=== PATIENT | female | born 1960 | race Caucasian/White ===

== ENCOUNTER → 2019-10-08 | Outpatient (CLI) | payer BC ==
--- NOTE | 2019-10-08 12:10 | XR ---
EXAMINATION TYPE: XR chest 2V DATE OF EXAM: 10/08/2019 COMPARISON: NONE HISTORY: Chest pain TECHNIQUE: Frontal and lateral views of the chest are obtained. FINDINGS: There is no focal air space opacity. No evidence for pneumothorax. No pleural effusion. The cardiac silhouette size is within normal limits. The osseous structures are grossly intact. IMPRESSION: 1. No acute cardiopulmonary process.
== END | disposition home or self-care (01) ==
LOC: RADXRMAIN 10:39
PROVIDERS: ATTEND Family Medicine
DX: R05 Cough (principal)
CPT/HCPCS: 71046

== ENCOUNTER → 2020-12-12 | Outpatient (CLI) | payer BC, OTHER | END | disposition home or self-care (01) | LOC: LABWHC1 10:14 | PROVIDERS: ATTEND Family Medicine | DX: U07.1 COVID-19 (principal) | CPT/HCPCS: U0003; C9803; U0005 ==

== ENCOUNTER 2020-12-19 07:14 | Emergency (ER) | payer OTHER ==
[2020-12-19] MEDS ORDERED: ALBUTEROL HFA INHALER INHALATION STA (07:41)
[2020-12-19] MEDS ORDERED: SODIUM CHLORIDE 0.9% 500 ML 500 ML IV STA (07:41)
[2020-12-19] MEDS ORDERED: ACETAMINOPHEN TAB 500 MG TAB PO STA (07:43)
[2020-12-19] MEDS ORDERED: IBUPROFEN 600 MG TAB PO STA (07:43)
--- NOTE | 2020-12-19 08:01 | ED ---
General Adult HPI - General Chief complaint: Shortness of Breath Stated complaint: SOB, COVID+ Time Seen by Provider: 12/19/20 07:15 Source: patient, RN notes reviewed, old records reviewed Mode of arrival: wheelchair Limitations: no limitations - History of Present Illness Initial comments: This is a 60-year-old female presents emergency Department with a 2 week history of cold. Patient states over the last couple days she all of a sudden started having more shortness of breath and a low-grade fever. Patient states her doctor sent the prescription into the pharmacy but she didn't pick it up. Patient states she believes that his ivermectin. Patient denies any headache patient denies lightheadedness or dizziness. Patient denies any chest pain or palpitations. Patient denies abdominal pain patient denies nausea vomiting diarrhea patient is a swelling to the legs or calf tenderness - Related Data Home Medications Medication Instructions Recorded Confirmed Ivermectin 3 mg PO DAILY 12/19/20 12/19/20 Naproxen Sodium [Aleve] 440 mg PO Q12H PRN 12/19/20 12/19/20 Allergies Allergy/AdvReac Type Severity Reaction Status Date / Time aspirin Allergy Unknown Verified 12/19/20 09:30 Penicillins Allergy Unknown Verified 12/19/20 09:30 Review of Systems ROS Statement: Those systems with pertinent positive or pertinent negative responses have been documented in the HPI. ROS Other: All systems not noted in ROS Statement are negative. Past Medical History Past Medical History: No Reported History History of Any Multi-Drug Resistant Organisms: None Reported Past Surgical History: Hysterectomy Additional Past Surgical History / Comment(s): sinus surgery Past Psychological History: No Psychological Hx Reported Smoking Status: Never smoker, Smoker, current status unknown Past Drug Use History: None Reported General Exam - General Exam Comments Initial Comments: GENERAL: Patient is well-developed and well-nourished. Patient is nontoxic and well- hydrated and is in mild distress. ENT: Neck is soft and supple. No significant lymphadenopathy is noted. Oropharynx is clear. Moist mucous membranes. Neck has full range of motion without eliciting any pain. EYES: The sclera were anicteric and conjunctiva were pink and moist. Extraocular movements were intact and pupils were equal round and reactive to light. Eyelids were unremarkable. PULMONARY: Unlabored respirations. Good breath sounds bilaterally. Patient's crackles in the bilateral bases CARDIOVASCULAR: There is a regular rate and rhythm without any murmurs gallops or rubs. ABDOMEN: Soft and nontender with normal bowel sounds. SKIN: Skin is clear with no lesions or rashes and otherwise unremarkable. NEUROLOGIC: Patient is alert and oriented x3. Cranial nerves II through XII are grossly intact. Motor and sensory are also intact. Normal speech, volume and content. Symmetrical smile. MUSCULOSKELETAL: Normal extremities with adequate strength and full range of motion. LYMPHATICS: No significant lymphadenopathy is noted PSYCHIATRIC: Normal psychiatric evaluation. Limitations: no limitations Course Vital Signs 12/19/20 12/19/20 12/19/20 07:21 07:40 08:07 Temperature 98.4 F 100.6 F H Pulse Rate 101 H 89 Respiratory 20 26 H Rate Blood Pressure 125/88 149/78 O2 Sat by Pulse 97 97 Oximetry 12/19/20 09:00 Temperature Pulse Rate 82 Respiratory 22 Rate Blood Pressure 139/95 O2 Sat by Pulse 98 Oximetry Medical Decision Making - Medical Decision Making EKG shows normal sinus rhythm at 91 bpm CA interval 158 QRS 72 QT interval 320 QTC is 403. Patient's EKG shows no ST segment elevation or depression. Chest x-ray shows bilateral pneumonia consistent COVID Pneumonia. - Lab Data Result diagrams: 12/19/20 07:54 12/19/20 07:54 Lab Results 12/19/20 12/19/20 12/19/20 Range/Units 07:54 07:54 07:54 WBC 12.5 H (3.8-10.6) k/uL RBC 5.60 H (3.80-5.40) m/uL Hgb 15.3 (11.4-16.0) gm/dL Hct 44.4 (34.0-46.0) % MCV 79.4 L (80.0-100.0) fL MCH 27.3 (25.0-35.0) pg MCHC 34.4 (31.0-37.0) g/dL RDW 14.1 (11.5-15.5) % Plt Count 298 (150-450) k/uL MPV 6.9 Neutrophils % 83 % Lymphocytes % 9 % Monocytes % 6 % Eosinophils % 0 % Basophils % 1 % Neutrophils # 10.4 H (1.3-7.7) k/uL Lymphocytes # 1.1 (1.0-4.8) k/uL Monocytes # 0.8 (0-1.0) k/uL Eosinophils # 0.0 (0-0.7) k/uL Basophils # 0.1 (0-0.2) k/uL Sodium 139 (137-145) mmol/L Potassium 4.3 (3.5-5.1) mmol/L Chloride 105 (98-107) mmol/L Carbon Dioxide 26 (22-30) mmol/L Anion Gap 8 mmol/L BUN 19 H (7-17) mg/dL Creatinine 0.64 (0.52-1.04) mg/dL Est GFR (CKD-EPI)AfAm >90 (>60 ml/min/1.73 sqM) Est GFR (CKD-EPI)NonAf >90 (>60 ml/min/1.73 sqM) Glucose 91 (74-99) mg/dL Calcium 9.4 (8.4-10.2) mg/dL Total Bilirubin 0.7 (0.2-1.3) mg/dL AST 37 H (14-36) U/L ALT 21 (4-34) U/L Alkaline Phosphatase 100 (38-126) U/L Troponin I <0.012 (0.000-0.034) ng/mL Total Protein 6.9 (6.3-8.2) g/dL Albumin 3.8 (3.5-5.0) g/dL Disposition Clinical Impression: Pneumonia due to COVID-19 virus Disposition: HOME SELF-CARE Instructions (If sedation given, give patient instructions): Coronavirus Disease 2019 (COVID-19) Is patient prescribed a controlled substance at d/c from ED?: No Referrals: Calos Flores DO [Primary Care Provider] - 1-2 days Time of Disposition: 09:37
--- NOTE | 2020-12-19 08:27 | XR ---
EXAMINATION TYPE: XR chest 1V portable DATE OF EXAM: 12/19/2020 HISTORY: Short of breath, COVID COMPARISON: 10/08/2019 TECHNIQUE: Single view of the chest is submitted. FINDINGS: Patchy basilar infiltrates compatible with Covid 19 pneumonia. The heart is stable. Hilar and mediastinal structures are within normal limits. Degenerative changes are seen of the dorsal spine. IMPRESSION: 1. Patchy basilar infiltrates compatible with Covid 19 pneumonia.
[2020-12-19 08:36] LABS: Basophils # (A) 0.1 k/uL (0-0.2); Basophils % (A) 1 %; Eosinophils % (A) 0 %; HCT 44.4 % (34.0-46.0); HGB 15.3 gm/dL (11.4-16.0); Lymphocytes # (A) 1.1 k/uL (1.0-4.8); Lymphocytes % (A) 9 %; MCH 27.3 pg (25.0-35.0); MCHC 34.4 g/dL (31.0-37.0); MCV 79.4 fL (80.0-100.0); Mean Platelet Volume 6.9; Monocytes # (A) 0.8 k/uL (0-1.0); Monocytes % (A) 6 %; Neutrophils # (A) 10.4 k/uL (1.3-7.7); Neutrophils % (A) 83 %; Platelet Count 298 k/uL (150-450); RDW 14.1 % (11.5-15.5); WBC 12.5 k/uL (3.8-10.6)
[2020-12-19 08:43] LABS: ALT 21 U/L (4-34); AST 37 U/L (14-36); African American GFR (CKD) >90 (>60 ml/min/1.73 sqM); Albumin 3.8 g/dL (3.5-5.0); Alkaline Phosphatase 100 U/L (38-126); Anion Gap 8 mmol/L; Blood Urea Nitrogen 19 mg/dL (7-17); Calcium 9.4 mg/dL (8.4-10.2); Carbon Dioxide 26 mmol/L (22-30); Chloride 105 mmol/L (98-107); Glucose 91 mg/dL (74-99); Non-African American GFR(CKD) >90 (>60 ml/min/1.73 sqM); Potassium 4.3 mmol/L (3.5-5.1); Sodium 139 mmol/L (137-145); Total Bilirubin 0.7 mg/dL (0.2-1.3); Total Protein 6.9 g/dL (6.3-8.2)
[2020-12-19 09:29] VITALS: BP 139/95; PULSE 82; RESP 22
[2020-12-19 09:53] VITALS: TEMP 99.1
== END 2020-12-19 09:52 | disposition home or self-care (01) ==
LOC: EC 07:14
DX: U07.1 COVID-19 (principal); J12.82 Pneumonia due to coronavirus disease 2019; Z90.710 Acquired absence of both cervix and uterus
CPT/HCPCS: 36415; 71045; 80053; 84484; 85025; 93005; 94640; 96360; 99285

== ENCOUNTER 2023-07-29 23:05 | Observation (INO) | payer OTHER ==
[2023-07-30 00:04] LABS: Basophils # (A) 0.1 k/uL (0-0.2); Basophils % (A) 1 %; Eosinophils # (A) 0.1 k/uL (0-0.7); Eosinophils % (A) 1 %; HCT 45.4 % (34.0-46.0); Lymphocytes % (A) 16 %; MCH 26.9 pg (25.0-35.0); MCHC 33.1 g/dL (31.0-37.0); MCV 81.3 fL (80.0-100.0); Monocytes # (A) 0.6 k/uL (0-1.0); Monocytes % (A) 5 %; Neutrophils # (A) 9.4 k/uL (1.3-7.7); Neutrophils % (A) 77 %; Platelet Count 364 k/uL (150-450); RBC 5.58 m/uL (3.80-5.40); RDW 14.5 % (11.5-15.5); WBC 12.3 k/uL (3.8-10.6)
[2023-07-30 00:09] LABS: Appearance,Urine Clear (Clear); Color,Urine Yellow; PH, Urine 7.5 (5.0-8.0); Protein,Urine Negative (Negative)
[2023-07-30 00:10] LABS: Bilirubin,Urine Negative (Negative); Blood,Urine Negative (Negative); Glucose,Urine (UA) Negative (Negative); Ketones,Urine Negative (Negative); Leukocyte Esterase,Urine Small (Negative); Nitrite,Urine Negative (Negative); Urobilinogen,Urine <2.0 mg/dL (<2.0)
[2023-07-30 00:14] LABS: Mucus,Urine Rare /hpf; Squamous Epithelial Cell,Urine <1 /hpf (0-4); WBC,Urine 2 /hpf (0-5)
[2023-07-30] MEDS ORDERED: ONDANSETRON 4 MG/2 ML VIAL IVP STA ×2 (00:14→06:00)
[2023-07-30] MEDS ORDERED: MORPHINE SULFATE 4 MG/ML SYRINGE IV STA (00:14)
[2023-07-30 00:31] LABS: ALT 25 U/L (4-34); AST 32 U/L (14-36); African American GFR (CKD) >90 (>60 ml/min/1.73 sqM); Albumin 4.1 g/dL (3.5-5.0); Alkaline Phosphatase 116 U/L (38-126); Amylase 35 U/L (30-110); Anion Gap 11 mmol/L; Blood Urea Nitrogen 16 mg/dL (7-17); Calcium 9.3 mg/dL (8.4-10.2); Carbon Dioxide 24 mmol/L (22-30); Chloride 104 mmol/L (98-107); Glucose 123 mg/dL (74-99); Lipase 42 U/L (23-300); Non-African American GFR(CKD) >90 (>60 ml/min/1.73 sqM); Potassium 3.8 mmol/L (3.5-5.1); Sodium 139 mmol/L (137-145); Total Bilirubin 0.8 mg/dL (0.2-1.3); Total Protein 7.2 g/dL (6.3-8.2)
[2023-07-30] MEDS ORDERED: HYDROmorphone 0.5 MG/0.5 ML SYRINGE IVP STA ×2 (01:00→06:00)
--- NOTE | 2023-07-30 05:45 | CT ---
EXAM: CT Abdomen and Pelvis Without Intravenous Contrast CLINICAL HISTORY: right abdominal/flank pain TECHNIQUE: Axial computed tomography images of the abdomen and pelvis without intravenous contrast. CTDI is 24.2 mGy and DLP is 1345.4 mGy-cm. This CT exam was performed using one or more of the following dose reduction techniques: automated exposure control, adjustment of the mA and/or kV according to patient size, and/or use of iterative reconstruction technique. COMPARISON: No relevant prior studies available. FINDINGS: Lung bases: Unremarkable. No mass. No consolidation. ABDOMEN: Liver: Hepatic steatosis. Gallbladder and bile ducts: Gallstones. No evidence of gallbladder wall thickening or surrounding edema or fluid. No ductal dilation. Pancreas: Unremarkable. No ductal dilation. Spleen: Unremarkable. No splenomegaly. Adrenals: Unremarkable. No mass. Kidneys and ureters: Unremarkable. No obstructing stones. No hydronephrosis. Stomach and bowel: Diverticulosis without diverticulitis. No obstruction. Small hiatus hernia. PELVIS: Appendix: No findings to suggest acute appendicitis. Bladder: Unremarkable. No stones. Reproductive: Hysterectomy. ABDOMEN and PELVIS: Intraperitoneal space: Unremarkable. No free air. No significant fluid collection. Bones/joints: No acute fracture. No dislocation. Soft tissues: Unremarkable. Vasculature: Unremarkable. No abdominal aortic aneurysm. Lymph nodes: Unremarkable. No enlarged lymph nodes. IMPRESSION: No acute findings in the abdomen or pelvis. Gallstones.
[2023-07-30] MEDS ORDERED: NALOXONE 0.4 MG/ML 1 ML VIAL IV PRN (07:38)
--- NOTE | 2023-07-30 07:41 | P.GSHP ---
History of Present Illness H&P Date: 07/30/23 Chief Complaint: Right upper quadrant pain This 8-year-old female who has complaints of right quadrant pain. Patient worked up emergency room found evidence of cholelithiasis. Past Medical History Past Medical History: No Reported History History of Any Multi-Drug Resistant Organisms: None Reported Past Surgical History: Hysterectomy Additional Past Surgical History / Comment(s): sinus surgery Past Psychological History: No Psychological Hx Reported Smoking Status: Never smoker, Smoker, current status unknown Past Alcohol Use History: None Reported Past Drug Use History: None Reported Medications and Allergies Home Medications Medication Instructions Recorded Confirmed Type Ivermectin 3 mg PO DAILY 12/19/20 12/19/20 History Naproxen Sodium [Aleve] 440 mg PO Q12H PRN 12/19/20 12/19/20 History Allergies Allergy/AdvReac Type Severity Reaction Status Date / Time aspirin Allergy Unknown Verified 07/29/23 23:20 Penicillins Allergy Unknown Verified 07/29/23 23:20 Surgical - Exam Vital Signs Temp Pulse Resp BP Pulse Ox 97.9 F 75 18 197/104 98 07/29/23 23:16 07/29/23 23:16 07/29/23 23:16 07/29/23 23:16 07/29/23 23:16 - General well developed, well nourished, no distress - Eyes PERRL - ENT normal pinna - Neck no masses - Respiratory normal expansion - Cardiovascular Rhythm: regular - Abdomen Right upper quadrant pain Abdomen: soft, tender Results - Labs 07/29/23 23:43 07/29/23 23:43 Abnormal Lab Results - Last 24 Hours (Table) 07/29/23 07/29/23 07/29/23 Range/Units 23:43 23:43 23:43 WBC 12.3 H (3.8-10.6) k/uL RBC 5.58 H (3.80-5.40) m/uL Neutrophils # 9.4 H (1.3-7.7) k/uL Glucose 123 H (74-99) mg/dL Urine Mucus Rare H (None) /hpf Diabetes panel 07/29/23 Range/Units 23:43 Sodium 139 (137-145) mmol/L Potassium 3.8 (3.5-5.1) mmol/L Chloride 104 (98-107) mmol/L Carbon Dioxide 24 (22-30) mmol/L BUN 16 (7-17) mg/dL Creatinine 0.53 (0.52-1.04) mg/dL Glucose 123 H (74-99) mg/dL Calcium 9.3 (8.4-10.2) mg/dL AST 32 (14-36) U/L ALT 25 (4-34) U/L Alkaline Phosphatase 116 (38-126) U/L Total Protein 7.2 (6.3-8.2) g/dL Albumin 4.1 (3.5-5.0) g/dL Calcium panel 07/29/23 Range/Units 23:43 Calcium 9.3 (8.4-10.2) mg/dL Albumin 4.1 (3.5-5.0) g/dL Pituitary panel 07/29/23 Range/Units 23:43 Sodium 139 (137-145) mmol/L Potassium 3.8 (3.5-5.1) mmol/L Chloride 104 (98-107) mmol/L Carbon Dioxide 24 (22-30) mmol/L BUN 16 (7-17) mg/dL Creatinine 0.53 (0.52-1.04) mg/dL Glucose 123 H (74-99) mg/dL Calcium 9.3 (8.4-10.2) mg/dL Adrenal panel 07/29/23 Range/Units 23:43 Sodium 139 (137-145) mmol/L Potassium 3.8 (3.5-5.1) mmol/L Chloride 104 (98-107) mmol/L Carbon Dioxide 24 (22-30) mmol/L BUN 16 (7-17) mg/dL Creatinine 0.53 (0.52-1.04) mg/dL Glucose 123 H (74-99) mg/dL Calcium 9.3 (8.4-10.2) mg/dL Total Bilirubin 0.8 (0.2-1.3) mg/dL AST 32 (14-36) U/L ALT 25 (4-34) U/L Alkaline Phosphatase 116 (38-126) U/L Total Protein 7.2 (6.3-8.2) g/dL Albumin 4.1 (3.5-5.0) g/dL Assessment and Plan Assessment: Symptomatically phthisis. Patient be scheduled for laparoscopic cholecystectomy in the a.m.
--- NOTE | 2023-07-30 08:23 | ED ---
Abdominal Pain HPI - General Chief Complaint: Abdominal Pain Stated Complaint: Abd and back pain Time Seen by Provider: 07/29/23 23:27 Source: patient Mode of arrival: ambulatory Limitations: no limitations - History of Present Illness Initial Comments: This patient is a 62-year-old woman who presents to have evaluation for back and upper abdominal pain as well as nausea and vomiting. Patient states that the pain started in her back, the area between the shoulder blades on Tuesday. She over the course of tonight started having worsening pain upper abdomen particularly right side. She had severe nausea and has vomited. MD Complaint: abdominal pain -: hour(s) Location: RUQ Radiation: back Migration to: no migration Severity: severe Quality: aching Consistency: constant Improves With: nothing Worsens With: eating Associated Symptoms: nausea - Related Data Home Medications Medication Instructions Recorded Confirmed Omeprazole 20 mg PO DAILY@0300 07/30/23 07/30/23 amLODIPine [Norvasc] 5 mg PO DAILY@03007/30/23 07/30/23 Previous Rx's Medication Instructions Recorded Acetaminophen Tab [Tylenol] 1,000 mg PO Q6HR PRN #30 tablet 08/02/23 Allergies Allergy/AdvReac Type Severity Reaction Status Date / Time aspirin Allergy Ringing in Verified 08/02/23 21:57 ears, dizziness cephalexin [From Keflex] Allergy Blisters, Verified 08/02/23 21:57 rash, hives. Penicillins Allergy Unknown Verified 08/02/23 21:57 Review of Systems ROS Statement: Those systems with pertinent positive or pertinent negative responses have been documented in the HPI. ROS Other: All systems not noted in ROS Statement are negative. Constitutional: Denies: fever, chills, weakness Respiratory: Denies: cough, dyspnea, wheezes Cardiovascular: Denies: chest pain, palpitations, edema Gastrointestinal: Reports: abdominal pain, nausea. Denies: diarrhea, constipation, melena, hematochezia Genitourinary: Denies: dysuria, frequency, hematuria Musculoskeletal: Denies: back pain Skin: Denies: rash Neurological: Denies: headache, weakness Past Medical History Past Medical History: No Reported History History of Any Multi-Drug Resistant Organisms: None Reported Past Surgical History: Hysterectomy Additional Past Surgical History / Comment(s): sinus surgery Past Psychological History: No Psychological Hx Reported Smoking Status: Never smoker, Smoker, current status unknown Past Alcohol Use History: None Reported Past Drug Use History: None Reported General Exam Limitations: no limitations General appearance: alert, in no apparent distress Head exam: Present: atraumatic, normocephalic Eye exam: Present: normal appearance. Absent: scleral icterus, conjunctival injection ENT exam: Present: normal oropharynx Neck exam: Present: normal inspection Respiratory exam: Present: normal lung sounds bilaterally. Absent: respiratory distress, wheezes, rales, rhonchi, stridor, chest wall tenderness, accessory muscle use Cardiovascular Exam: Present: regular rate, normal rhythm, normal heart sounds. Absent: systolic murmur, diastolic murmur, rubs, gallop GI/Abdominal exam: Present: soft, tenderness (There is moderate right upper quadrant tenderness without rebound or guarding.). Absent: distended, guarding, rebound, rigid, mass, pulsatile mass Extremities exam: Present: normal inspection, normal capillary refill. Absent: pedal edema, calf tenderness Back exam: Present: normal inspection. Absent: CVA tenderness (R), CVA tenderness (L) Neurological exam: Present: alert Skin exam: Present: warm, dry, intact, normal color. Absent: rash Course Vital Signs 07/29/23 07/30/23 07/30/23 23:16 04:58 09:03 Temperature 97.9 F 97.8 F Pulse Rate 75 66 67 Respiratory 18 18 18 Rate Blood Pressure 197/104 154/90 171/99 O2 Sat by Pulse 98 99 98 Oximetry 07/30/23 07/30/23 07/30/23 11:27 13:42 16:03 Temperature 97.8 F Pulse Rate 73 79 80 Respiratory 18 18 18 Rate Blood Pressure 169/90 176/100 179/97 O2 Sat by Pulse 99 97 97 Oximetry Medical Decision Making - Medical Decision Making The patient had computed tomography scan of the abdomen and pelvis which I interpreted to show presence of gallstones, no definite cholecystitis. Patient is a 62-year-old woman presenting with abdominal pain, the history and physical are suggestive of biliary colic. The patient did have a computed tomography scan showing stones but no definite cholecystitis. The patient was not having much relief with treatment in emergency Department and therefore case discussed with Dr. Nayak, who agreed to admit patient for further symptom management for symptomatic cholelithiasis. Was pt. sent in by a medical professional or institution (BARAK Dumont, REVIEW ASSISTANT, urgent care, hospital, or penitentiary...) When possible be specific @ -[No] Did you speak to anyone other than the patient for history (EMS, parent, family, police, friend...)? What history was obtained from this source @ -[No] Did you review nursing and triage notes (agree or disagree)? Why? @ -[I reviewed and agree with nursing and triage notes] Were old charts reviewed (outside hosp., previous admission, EMS record, old EKG, old radiological studies, urgent care reports/EKG's, penitentiary records)? Report findings @ -[No old charts were reviewed] Differential Diagnosis (chest pain, altered mental status, abdominal pain women, abdominal pain men, vaginal bleeding, weakness, fever, dyspnea, syncope, headache, dizziness, GI bleed, back pain, seizure, CVA, palpatations, mental health, musculoskeletal)? @ -[Differential Abdominal Pain Women: Appendicitis, Cholecystitis, diverticulosis, ischemic bowel, pancreatitis, hepatitis, UTI, gastroenteritis, AAA, incarcerated hernia, bowel obstruction, constipation, inflammatory bowel, hepatitis, peptic ulcer disease, splenic infarction, perforated viscus, vulvitis, ovarian torsion, PID, kidney stone, placenta abruption, this is not meant to be an all-inclusive list EKG interpreted by me (3pts min.). @ -[As above] X-rays interpreted by me (1pt min.). @ -[None done] CT interpreted by me (1pt min.). @ -[I interpreted as above U/S interpreted by me (1pt. min.). @ -[None done] What testing was considered but not performed or refused? (CT, X-rays, U/S, labs)? Why? @ -[None] What meds were considered but not given or refused? Why? @ -[None] Did you discuss the management of the patient with other professionals (professionals i.e. BARAK Dumont, REVIEW ASSISTANT, lab, RT, psych nurse, social work faculty member, senior case manager, teacher, third officer, shoe caser)? Give summary @ -[No] Was smoking cessation discussed for >3mins.? @ -[No] Was critical care preformed (if so, how long)? @ -[No] Were there social determinants of health that impacted care today? How? (Homelessness, low income, unemployed, alcoholism, drug addiction, transportation, low edu. Level, literacy, decrease access to med. care, senior living, rehab)? @ -[No] Was there de-escalation of care discussed even if they declined (Discuss DNR or withdrawal of care, Hospice)? DNR status @ -[No] What co-morbidities impacted this encounter? (DM, HTN, Smoking, COPD, CAD, Cancer, CVA, ARF, Chemo, Hep., AIDS, mental health diagnosis, sleep apnea, morbid obesity)? @ -[None] Was patient admitted / discharged? Hospital course, mention meds given and route, prescriptions, significant lab abnormalities, going to OR and other pertinent info. @ -[As above Undiagnosed new problem with uncertain prognosis? @ -[No] Drug Therapy requiring intensive monitoring for toxicity (Heparin, Nitro, Insulin, Cardizem)? @ -[No] Were any procedures done? @ -[No] Diagnosis/symptom? @ -[Acute intractable abdominal pain Symptomatic cholelithiasis Acute, or Chronic, or Acute on Chronic? @ -[Acute Uncomplicated (without systemic symptoms) or Complicated (systemic symptoms)? @ -[Uncomplicated Side effects of treatment? @ -[No] Exacerbation, Progression, or Severe Exacerbation? @ -[No] Poses a threat to life or bodily function? How? (Chest pain, [place], [place], pneumonia, PE, COPD, DKA, ARF, appy, cholecystitis, CVA, Diverticulitis, Homicidal, Suicidal, threat to staff... and all critical care pts) @ -[Yes, untreated cholelithiasis may progress to cholecystitis - Lab Data Result diagrams: 08/02/23 07:20 07/31/23 07:07 Lab Results 07/29/23 07/29/23 07/29/23 Range/Units 23:43 23:43 23:43 WBC 12.3 H (3.8-10.6) k/uL RBC 5.58 H (3.80-5.40) m/uL Hgb 15.0 (11.4-16.0) gm/dL Hct 45.4 (34.0-46.0) % MCV 81.3 (80.0-100.0) fL MCH 26.9 (25.0-35.0) pg MCHC 33.1 (31.0-37.0) g/dL RDW 14.5 (11.5-15.5) % Plt Count 364 (150-450) k/uL MPV 7.0 Neutrophils % 77 % Lymphocytes % 16 % Monocytes % 5 % Eosinophils % 1 % Basophils % 1 % Neutrophils # 9.4 H (1.3-7.7) k/uL Lymphocytes # 2.0 (1.0-4.8) k/uL Monocytes # 0.6 (0-1.0) k/uL Eosinophils # 0.1 (0-0.7) k/uL Basophils # 0.1 (0-0.2) k/uL Sodium 139 (137-145) mmol/L Potassium 3.8 (3.5-5.1) mmol/L Chloride 104 (98-107) mmol/L Carbon Dioxide 24 (22-30) mmol/L Anion Gap 11 mmol/L BUN 16 (7-17) mg/dL Creatinine 0.53 (0.52-1.04) mg/dL Est GFR (CKD-EPI)AfAm >90 (>60 ml/min/1.73 sqM) Est GFR (CKD-EPI)NonAf >90 (>60 ml/min/1.73 sqM) Glucose 123 H (74-99) mg/dL Calcium 9.3 (8.4-10.2) mg/dL Total Bilirubin 0.8 (0.2-1.3) mg/dL AST 32 (14-36) U/L ALT 25 (4-34) U/L Alkaline Phosphatase 116 (38-126) U/L Total Protein 7.2 (6.3-8.2) g/dL Albumin 4.1 (3.5-5.0) g/dL Amylase 35 (30-110) U/L Lipase 42 (23-300) U/L Urine Color Yellow Urine Appearance Clear (Clear) Urine pH 7.5 (5.0-8.0) Ur Specific [place] 1.010 (1.001-1.035) Urine Protein Negative (Negative) Urine Glucose (UA) Negative (Negative) Urine Ketones Negative (Negative) Urine Blood Negative (Negative) Urine Nitrite Negative (Negative) Urine Bilirubin Negative (Negative) Urine Urobilinogen <2.0 (<2.0) mg/dL Ur Leukocyte Esterase Small (Negative) Urine WBC 2 (0-5) /hpf Ur Squamous Epith Cells <1 (0-4) /hpf Urine Mucus Rare H (None) /hpf Disposition Clinical Impression: Abdominal pain, Symptomatic cholelithiasis Disposition: ADMITTED IP TO THIS HOSP Condition: Stable Is patient prescribed a controlled substance at d/c from ED?: No
--- NOTE | 2023-07-30 08:41 | US ---
EXAMINATION TYPE: US abdomen limited DATE OF EXAM: 07/30/2023 COMPARISON: NONE CLINICAL INDICATION: Female, 62 years old with history of Attention RUQ; RUQ pain, nausea/vomiting TECHNIQUE: Multiple sonographic images of the right upper quadrant are obtained. FINDINGS: EXAM MEASUREMENTS: Liver Length: 18.9 cm Gallbladder Wall: 0.4 cm CBD: 0.5 cm Right Kidney: 10.1 x 4.7 x 4.6 cm NUCLEAR PHYSICS PROFESSOR NOTES: *Technical limitations due to patient's body habitus and overlying bowel gas Pancreas: Tail obscured by overlying bowel gas Liver: Mildly enlargement with increased echogenicity. Gallbladder: Multiple stones are present. There is mild hydropic change 12.7cm and borderline wall t hickening. No surrounding fluid. Evidence for sonographic Douglas's sign: no CBD: appears wnl as visualized Right Kidney: no evidence of hydronephrosis IMPRESSION: 1. Mild gallbladder hydropic change with borderline wall thickening and cholelithiasis. However, ther e is no surrounding fluid and sonographic Douglas sign is reported absent. Consider chronic cholecysti tis. HIDA scan if further imaging assessment is desired. 2. Mild hepatomegaly with mild hepatic steatosis. 3. No biliary ductal dilatation.
[2023-07-30] MEDS: SODIUM CHLORIDE 0.9% 1,000 ML IV SCH ×2 (09:05→20:23)
[2023-07-30] MEDS: PANTOPRAZOLE 40 MG/10 ML VIAL IV SCH (09:06)
[2023-07-30] MEDS: ONDANSETRON 4 MG/2 ML VIAL IVP PRN ×2 (09:11→18:02)
[2023-07-30] MEDS: HYDROmorphone 0.5 MG/0.5 ML SYRINGE IVP PRN ×4 (09:11→22:34)
[2023-07-30] MEDS ORDERED: METOCLOPRAMIDE 5 MG/ML 2 ML VIAL IVP STA (13:45)
--- NOTE | 2023-07-30 19:17 | P.CONS ---
History of Present Illness - Reason for Consult Consult date: 07/30/23 Medical management - Chief Complaint Abdominal pain - History of Present Illness 62-year-old woman who presents to have evaluation for back and upper abdominal pain as well as nausea and vomiting. Patient states that the pain started in her back, the area between the shoulder blades on Tuesday. She over the course of tonight started having worsening pain upper abdomen particularly right side. She had severe nausea and has vomited Abdominal ultrasound completed in ED diffuse mild gallbladder hydropic change with borderline wall thickening and cholelithiasis; no sonographic evidence of Douglas's sign; possible chronic cholecystitis; mild hepatomegaly with mild hepatic steatosis Level completed in ED reveals a WBC of 12.3, hemoglobin 15 and platelet count of 364, sodium 139, potassium 3.8, BUN/creatinine of 16/0.53 and blood glucose of 123, UA reveals small amount of leukocyte esterase and WBCs Review of Systems REVIEW OF SYSTEMS: CONSTITUTIONAL: No fever, no malaise, no fatigue. HEENT: No recent visual problems or hearing problems. Denied any sore throat. CARDIOVASCULAR: No chest pain, orthopnea, PND, no palpitations, no syncope. PULMONARY: No shortness of breath, no cough, no hemoptysis. GASTROINTESTINAL: No diarrhea, no nausea, no vomiting, no abdominal pain. NEUROLOGICAL: No headaches, no weakness, no numbness. HEMATOLOGICAL: Denies any bleeding or petechiae. GENITOURINARY: Denies any burning micturition, frequency, or urgency. MUSCULOSKELETAL/RHEUMATOLOGICAL: Denies any joint pain, swelling, or any muscle pain. ENDOCRINE: Denies any polyuria or polydipsia. The rest of the 14-point review of systems is negative. Past Medical History Past Medical History: No Reported History History of Any Multi-Drug Resistant Organisms: None Reported Past Surgical History: Hysterectomy Additional Past Surgical History / Comment(s): sinus surgery Past Psychological History: No Psychological Hx Reported Smoking Status: Never smoker, Smoker, current status unknown Past Alcohol Use History: None Reported Past Drug Use History: None Reported Medications and Allergies Home Medications Medication Instructions Recorded Confirmed Type Omeprazole 20 mg PO DAILY@0300 07/30/23 07/30/23 History amLODIPine [Norvasc] 5 mg PO DAILY@0300 07/30/23 07/30/23 History Allergies Allergy/AdvReac Type Severity Reaction Status Date / Time aspirin Allergy Ringing in Verified 07/30/23 11:55 ears, dizziness cephalexin [From Keflex] Allergy Blisters, Verified 07/30/23 11:55 rash, hives. Penicillins Allergy Unknown Verified 07/30/23 11:55 Physical Exam Vitals: Vital Signs Temp Pulse Resp BP Pulse Ox 07/30/23 09:03 97.8 F 67 18 171/99 98 07/30/23 04:58 66 18 154/90 99 07/29/23 23:16 97.9 F 75 18 197/104 98 Intake and Output 07/29/23 07/30/23 07/30/23 22:59 06:59 14:59 Other: Weight 113.398 kg General appearance: alert, in no apparent distress Head exam: Present: atraumatic, normocephalic Eye exam: Present: normal appearance. Absent: scleral icterus, conjunctival injection ENT exam: Present: normal oropharynx Neck exam: Present: normal inspection Respiratory exam: Present: normal lung sounds bilaterally. Absent: respiratory distress, wheezes, rales, rhonchi, stridor, chest wall tenderness, accessory muscle use Cardiovascular Exam: Present: regular rate, normal rhythm, normal heart sounds. Absent: systolic murmur, diastolic murmur, rubs, gallop GI/Abdominal exam: Present: soft, tenderness (There is moderate right upper quadrant tenderness without rebound or guarding.). Absent: distended, guarding, rebound, rigid, mass, pulsatile mass Extremities exam: Present: normal inspection, normal capillary refill. Absent: pedal edema, calf tenderness Back exam: Present: normal inspection. Absent: CVA tenderness (R), CVA tenderness (L) Neurological exam: Present: alert Skin exam: Present: warm, dry, intact, normal color. Absent: rash Results CBC & Chem 7: 07/29/23 23:43 07/29/23 23:43 Labs: Abnormal Lab Results - Last 24 Hours (Table) 07/29/23 07/29/23 07/29/23 Range/Units 23:43 23:43 23:43 WBC 12.3 H (3.8-10.6) k/uL RBC 5.58 H (3.80-5.40) m/uL Neutrophils # 9.4 H (1.3-7.7) k/uL Glucose 123 H (74-99) mg/dL Urine Mucus Rare H (None) /hpf Assessment and Plan Assessment: 1. Intractable abdominal pain/ cholelithiasis; possible chronic cholecystitis -- Symptomatically phthisis. Patient be scheduled for laparoscopic cholecystectomy in the a.m. - Pain controlled with Dilaudid 0.5 mg every 3 hours when necessary; Zofran 4 mg IV every 4 hours when necessary for nausea and vomiting - Patient has been placed on Protonix 40 mg IV daily 2. Leukocytosis; likely the active; no signs of sepsis - We will monitor CBC, CRP and pro-calcitonin 3. Hypertension; continue with home dose of amlodipine 5 mg daily 4. Gastroesophageal reflux disease; patient takes Protonix at home which has been switched to Protonix 40 mg IV daily DVT prophylaxis; SCDs CODE STATUS; full code
[2023-07-30] MEDS ORDERED: hydrALAZINE HCL 20 MG/ML 1 ML VIAL IVP PRN (19:21)
[2023-07-30] MEDS: amLODIPine 5 MG TAB PO SCH (20:23)
[2023-07-31] MEDS: PANTOPRAZOLE 40 MG TABLET PO SCH (03:17)
[2023-07-31] MEDS: amLODIPine 5 MG TAB PO SCH (03:18)
[2023-07-31 07:42] LABS: African American GFR (CKD) >90 (>60 ml/min/1.73 sqM); Anion Gap 13 mmol/L; Blood Urea Nitrogen 12 mg/dL (7-17); Calcium 9.6 mg/dL (8.4-10.2); Carbon Dioxide 25 mmol/L (22-30); Chloride 101 mmol/L (98-107); Glucose 130 mg/dL (74-99); Non-African American GFR(CKD) >90 (>60 ml/min/1.73 sqM); Potassium 4.8 mmol/L (3.5-5.1); Sodium 139 mmol/L (137-145)
[2023-07-31 08:24] LABS: Basophils % (A) 0 %; Eosinophils % (A) 0 %; HCT 45.6 % (34.0-46.0); HGB 14.7 gm/dL (11.4-16.0); Lymphocytes # (A) 1.4 k/uL (1.0-4.8); Lymphocytes % (A) 10 %; MCH 26.8 pg (25.0-35.0); MCHC 32.2 g/dL (31.0-37.0); MCV 83.2 fL (80.0-100.0); Mean Platelet Volume 7.4; Monocytes # (A) 0.9 k/uL (0-1.0); Monocytes % (A) 6 %; Neutrophils # (A) 11.9 k/uL (1.3-7.7); Neutrophils % (A) 83 %; Platelet Count 320 k/uL (150-450); RBC 5.47 m/uL (3.80-5.40); RDW 14.5 % (11.5-15.5); WBC 14.3 k/uL (3.8-10.6)
[2023-07-31] MEDS: HYDROmorphone 0.5 MG/0.5 ML SYRINGE IVP PRN ×3 (08:25→18:55)
[2023-07-31] MEDS: PANTOPRAZOLE 40 MG/10 ML VIAL IV SCH (08:25)
[2023-07-31] MEDS: ONDANSETRON 4 MG/2 ML VIAL IVP PRN (08:32)
[2023-07-31] MEDS ORDERED: BUPIVACAINE (PF) 0.25% 30 ML VIAL SQ ONE ×2 (09:25→10:10)
[2023-07-31] MEDS ORDERED: ROCURONIUM 10 MG/ML (5 ML VIAL) IV ONE (09:46)
[2023-07-31] MEDS ORDERED: PROPOFOL 10 MG/ML 20 ML VIAL IV ONE (09:46)
[2023-07-31] MEDS ORDERED: LIDOCAINE 1% INJ 10MG/ML (20 ML MDV) ONE (09:46)
[2023-07-31] MEDS ORDERED: SUCCINYLCHOLINE CHLORIDE 200 MG/10 ML VIAL IV ONE (09:46)
[2023-07-31] MEDS ORDERED: SODIUM CHLORIDE 0.9% 50 ML with ceFAZolin 2,000 MG IV ONE ×2 (09:46)
[2023-07-31] MEDS ORDERED: diphenhydrAMINE 50 MG/ML 1 ML VIAL ONE (09:46)
[2023-07-31] MEDS ORDERED: MIDAZOLAM 2 MG/2 ML VIAL ONE (09:46)
[2023-07-31] MEDS ORDERED: fentaNYL (PF) 50 MCG/ML 2 ML AMP ONE (09:46)
[2023-07-31] MEDS ORDERED: LACTATED RINGERS 1,000 ML IV ONE ×3 (09:52→11:31)
[2023-07-31] MEDS ORDERED: HYDROmorphone 1 MG/ML 1 ML SYRINGE IVP PRN (10:47)
[2023-07-31] MEDS ORDERED: HYDROcodone/APAP 7.5-325MG 1 EACH TAB PO PRN (10:47)
--- NOTE | 2023-07-31 10:47 | P.OP ---
Date of Procedure: 07/31/23 Preoperative Diagnosis: Cholelithiasis Postoperative Diagnosis: Cholelithiasis Cholecystitis Procedure(s) Performed: Laparoscopic cholecystectomy Anesthesia: MARIVEL Surgeon: Daniel Nayak Estimated Blood Loss (ml): 5 Pathology: other (Gallbladder) Condition: stable Disposition: PACU Description of Procedure: The patient was placed on the operating table. The patient received a general endotracheal tube anesthesia. The patients abdomen was prepped and draped in the usual sterile fashion. Through an infraumbilical stab incision, the fascia of the anterior abdominal wall was grasped with a pair of Kochers and then the Veress needle was placed in the peritoneal cavity. Position of the Veress needle was confirmed with positive drop test. The abdomen was then insufflated. After adequate insufflation, the 10 mm trocar was placed in the peritoneal cavity. Following this the laparoscope was placed in the peritoneal cavity. The patient was placed in the head-up, right side up position and then a 5 mm trocar was placed in the right lateral and right subcostal position under direct visualization. A 8 mm trocar was placed in the epigastric position. The gallbladder was grasped in the fundus and infundibulum. Traction on the gallbladder was placed in the lateral and the cephalad positions. The triangle of Calot was visualized.. The cystic duct was bluntly dissected until the union of the cystic duct and common bile duct was seen. A critical view of safety was achieved. The cystic duct was then divided and sealed with the Harmonic scissors. A PDS Endoloop was then placed throughout the cystic duct stump. The cystic artery divided and sealed with the Harmonic scissors. The gallbladder was then removed from the liver bed using Harmonic scissors. The gallbladder was then extracted through the epigastric port site. Operative field was checked for any bleeding spots and Harmonic scissors was used to coagulate the liver bed. The abdomen was irrigated. The trocars were removed. The skin was closed using interrupted 3-0 Vicryl suture. Dermabond dressing were applied. The patient tolerated the procedure well.
[2023-07-31] MEDS ORDERED: HYDROmorphone 0.5 MG/0.5 ML SYRINGE IVP ONE (11:16)
[2023-07-31] MEDS: SODIUM CHLORIDE 0.9% 1,000 ML IV SCH ×2 (15:09→19:44)
[2023-07-31] MEDS: ACETAMINOPHEN TAB 325 MG TAB PO PRN (21:29)
[2023-08-01] MEDS: PANTOPRAZOLE 40 MG TABLET PO SCH (02:11)
[2023-08-01] MEDS: amLODIPine 5 MG TAB PO SCH (02:11)
[2023-08-01] MEDS: ACETAMINOPHEN TAB 325 MG TAB PO PRN ×2 (02:31→23:10)
--- NOTE | 2023-08-01 05:50 | P.PN ---
Subjective Progress Note Date: 07/29/23 62-year-old woman who presents to have evaluation for back and upper abdominal pain as well as nausea and vomiting. Patient states that the pain started in her back, the area between the shoulder blades on Tuesday. She over the course of tonight started having worsening pain upper abdomen particularly right side. She had severe nausea and has vomited Abdominal ultrasound completed in ED diffuse mild gallbladder hydropic change with borderline wall thickening and cholelithiasis; no sonographic evidence of Douglas's sign; possible chronic cholecystitis; mild hepatomegaly with mild hepatic steatosis Level completed in ED reveals a WBC of 12.3, hemoglobin 15 and platelet count of 364, sodium 139, potassium 3.8, BUN/creatinine of 16/0.53 and blood glucose of 123, UA reveals small amount of leukocyte esterase and WBCs --Patient is scheduled for LAP Cathy this morning Objective - Vital Signs Vital signs: Vital Signs Temp 98.4 F 07/31/23 06:49 Pulse 101 H 07/31/23 06:49 Resp 16 07/31/23 06:49 BP 148/92 07/31/23 06:49 Pulse Ox 95 07/31/23 06:49 FiO2 Intake & Output 07/30/23 07/31/23 07/31/23 18:59 06:59 18:59 Weight 113.398 kg Other: Voiding Method Toilet # Voids 3 # Bowel Movements 0 - Exam General appearance: alert, in no apparent distress Head exam: Present: atraumatic, normocephalic Eye exam: Present: normal appearance. Absent: scleral icterus, conjunctival injection ENT exam: Present: normal oropharynx Neck exam: Present: normal inspection Respiratory exam: Present: normal lung sounds bilaterally. Absent: respiratory distress, wheezes, rales, rhonchi, stridor, chest wall tenderness, accessory muscle use Cardiovascular Exam: Present: regular rate, normal rhythm, normal heart sounds. Absent: systolic murmur, diastolic murmur, rubs, gallop GI/Abdominal exam: Present: soft, tenderness (There is moderate right upper quadrant tenderness without rebound or guarding.). Absent: distended, guarding, rebound, rigid, mass, pulsatile mass Extremities exam: Present: normal inspection, normal capillary refill. Absent: pedal edema, calf tenderness Back exam: Present: normal inspection. Absent: CVA tenderness (R), CVA tenderness (L) Neurological exam: Present: alert Skin exam: Present: warm, dry, intact, normal color. Absent: rash - Labs CBC & Chem 7: 07/31/23 07:07 07/31/23 07:07 Labs: Abnormal Lab Results - Last 24 Hours (Table) 07/31/23 07/31/23 Range/Units 07:07 07:07 WBC 14.3 H (3.8-10.6) k/uL RBC 5.47 H (3.80-5.40) m/uL Neutrophils # 11.9 H (1.3-7.7) k/uL Glucose 130 H (74-99) mg/dL Assessment and Plan Assessment: 1. Intractable abdominal pain/ cholelithiasis; possible chronic cholecystitis -- Symptomatically phthisis. Patient be scheduled for laparoscopic cholecystectomy in the a.m. - Pain controlled with Dilaudid 0.5 mg every 3 hours when necessary; Zofran 4 mg IV every 4 hours when necessary for nausea and vomiting - Patient has been placed on Protonix 40 mg IV daily 2. Leukocytosis; likely the active; no signs of sepsis - We will monitor CBC, CRP and pro-calcitonin 3. Hypertension; continue with home dose of amlodipine 5 mg daily 4. Gastroesophageal reflux disease; patient takes Protonix at home which has been switched to Protonix 40 mg IV daily DVT prophylaxis; SCDs CODE STATUS; full code
[2023-08-01] MEDS: ENOXAPARIN 40 MG/0.4 ML SYRINGE SQ SCH (07:47)
[2023-08-01] MEDS: PANTOPRAZOLE 40 MG/10 ML VIAL IV SCH (07:47)
--- NOTE | 2023-08-01 13:03 | P.PN ---
Subjective Progress Note Date: 08/01/23 CHIEF COMPLAINT: Cholecystitis HISTORY OF PRESENT ILLNESS: Patient postop day #1 status post laparoscopic cholecystectomy. Patient reports her pain is controlled. She did have flatus. Denies any nausea or vomiting. No bowel movement. She did have a low-grade temp of 100.5 last night. Currently afebrile. WBC 14 yesterday. PHYSICAL EXAM: VITAL SIGNS: Reviewed. GENERAL: Well-developed in no acute distress. ABDOMEN: Soft. Nondistended. Incision sites clean dry and intact NEUROLOGIC: Alert and oriented. Cranial nerves II through XII grossly intact. ASSESSMENT: 1. Cholecystitis and cholelithiasis status post laparoscopic cholecystectomy PLAN: -Incentive spirometer ordered, patient having low-grade fevers, possible atelectasis -Encouraged patient to ambulate -Continue pain management -Continue regular diet -Anticipate discharge tomorrow -DVT prophylaxis Lovenox Physician Sod Farmer note has been reviewed by physician. Signing provider agrees with the documented findings, assessment, and plan of care. Objective - Vital Signs Vital signs: Vital Signs Temp 98.2 F 08/01/23 07:45 Pulse 81 08/01/23 07:45 Resp 17 08/01/23 07:45 BP 124/77 08/01/23 07:45 Pulse Ox 97 08/01/23 10:11 FiO2 Intake & Output 07/31/23 08/01/23 08/01/23 18:59 06:59 18:59 Intake Total 1050 296 Output Total 5 Balance 1045 296 Intake: IV 1050 Oral 296 Output: Estimated Blood Loss 5 Other: Voiding Method Toilet # Voids 1 3 - Labs CBC & Chem 7: 07/31/23 07:07 07/31/23 07:07
[2023-08-01 15:16] VITALS: RESP 18
[2023-08-01] MEDS: SODIUM CHLORIDE 0.9% 1,000 ML IV SCH (18:50)
--- NOTE | 2023-08-01 20:02 | P.PN ---
Subjective Progress Note Date: 08/01/23 This is 62-year-old female status post lap cholecystectomy, postop day #1. Pain controlled. T-max 100.5. WBC elevated yesterday, 14. Currently maintaining O2 sats of-90s on 4 L nasal cannula which can be titrated further down. Tolerating regular diet with no nausea vomiting or diarrhea. Passing flatus. No bowel movement. Eyes chest pain, palpitations or shortness of breath. Objective - Vital Signs Vital signs: Vital Signs Temp 98.6 F 08/01/23 14:00 Pulse 103 H 08/01/23 14:00 Resp 18 08/01/23 14:00 BP 132/85 08/01/23 14:00 Pulse Ox 95 08/01/23 14:00 FiO2 Intake & Output 08/01/23 08/01/23 08/02/23 06:59 18:59 06:59 Intake Total 1092 Balance 1092 Intake: Oral 1092 Other: Voiding Method Toilet # Voids 3 3 - Exam General appearance: alert and oriented 3, NAD, sitting up in bed. HEENT: atraumatic, normocephalic, pupils equal, reactive, normocephalic,MMM. Neck: Supple, no JVD Respiratory: Unlabored, equal air entry, bilateral bases diminished Cardiovascular Exam: Present: regular rate, normal rhythm, normal heart sounds. GI/Abdominal exam: Present: soft, status post surgery Extremities exam: Present: normal inspection, normal capillary refill. Absent: pedal edema, calf tenderness Neurological: Cranial nerves II through XII grossly intact Skin exam: Present: warm, dry, intact, normal color. Absent: rash - Labs CBC & Chem 7: 07/31/23 07:07 07/31/23 07:07 Assessment and Plan Assessment: Cholecystitis and cholelithiasis status post laparoscopic cholecystectomy Atelectasis, postoperative, expected outcome Hypoxic respiratory failure secondary to the above Leukocytosis, suspect reactive Gastroesophageal reflux disease Hypertension Plan: Continue on current medication regime ,monitoring and symptomatic treatment. Aggressive pulmonary toileting with incentive spirometer reinforced. Increase ambulation as tolerated. Pain management. Continue titrating O2 as tolerated. Discharge planning in progress for tomorrow as per primary. The impression and plan of care has been dictated as directed. : I performed a history and examination of this patient, discussed the same with the dictator. I agree with the dictator's note ,documented as a scribe. Any additional findings or plans will be noted.
[2023-08-02 02:13] VITALS: TEMP 98.1
[2023-08-02] MEDS: PANTOPRAZOLE 40 MG TABLET PO SCH (03:38)
[2023-08-02] MEDS: amLODIPine 5 MG TAB PO SCH (03:38)
[2023-08-02] MEDS: SODIUM CHLORIDE 0.9% 1,000 ML IV SCH ×2 (05:48→08:06)
[2023-08-02] MEDS: PANTOPRAZOLE 40 MG/10 ML VIAL IV SCH (08:06)
[2023-08-02] MEDS: ENOXAPARIN 40 MG/0.4 ML SYRINGE SQ SCH (08:06)
[2023-08-02] MEDS: ACETAMINOPHEN TAB 325 MG TAB PO PRN (08:15)
[2023-08-02 08:59] VITALS: BP 123/83; PULSE 63
[2023-08-02 11:19] LABS: Basophils # (A) 0.08 X 10*3/uL (0.00-0.10); Eosinophils # (A) 0.21 X 10*3/uL (0.04-0.35); Eosinophils % (A) 2.5 %; HCT 39.5 % (37.2-46.3); HGB 12.5 g/dL (12.0-15.0); Lymphocytes # (A) 1.92 X 10*3/uL (0.90-5.00); Lymphocytes % (A) 23.1 %; MCH 26.3 pg (27.0-32.0); MCHC 31.6 g/dL (32.0-37.0); Mean Platelet Volume 9.4 FL (9.5-12.2); Monocytes # (A) 0.76 X 10*3/uL (0.20-1.00); Monocytes % (A) 9.1 %; NRBC Per 100 WBC 0 X 10*3/uL (0.00-0.01); Neutrophils # (A) 5.33 X 10*3/uL (1.80-7.70); Neutrophils % (A) 64.1 %; Platelet Count 312 X 10*3/uL (140-440); RBC 4.76 X 10*6/uL (4.10-5.20); WBC 8.32 X 10*3/uL (4.50-10.00)
--- NOTE | 2023-08-02 12:06 | P.DS ---
Providers Date of admission: 07/30/23 07:38 Expected date of discharge: 08/02/23 Attending physician: Daniel Nayak Consults: 07/30/23 18:35 Consult Physician Stat Consulting Provider: Calos Flores Consult Reason/Comments: medical coverage Do you want consulting provider notified?: Yes Primary care physician: Calos Flores Hospital Course: Discharge diagnosis 1. Cholelithiasis and cholecystitis status post laparoscopic cholecystectomy Hospital course This is a 62-year-old female presented with right upper quadrant abdominal pain and was found have evidence of cholelithiasis. She is status post laparoscopic cholecystectomy. Patient reports her pain is controlled. She is tolerating diet. She is afebrile. Her white count has normalized. She is having flatus. She has been up and ambulating. She is stable for discharge. Please refer to chart for any further details. Physician Medical Office Receptionist note has been reviewed by physician. Signing provider agrees with the documented findings, assessment, and plan of care. Patient Condition at Discharge: Stable Plan - Discharge Summary Discharge Rx Participant: No New Discharge Prescriptions: New Acetaminophen Tab [Tylenol] 1,000 mg PO Q6HR PRN #30 tablet PRN Reason: Pain Continue Omeprazole 20 mg PO DAILY@0300 amLODIPine [Norvasc] 5 mg PO DAILY@0300 Discharge Medication List Omeprazole 20 mg PO DAILY@0300 07/30/23 [History] amLODIPine [Norvasc] 5 mg PO DAILY@0300 07/30/23 [History] Acetaminophen Tab [Tylenol] 1,000 mg PO Q6HR PRN #30 tablet 08/02/23 [Rx] Follow up Appointment(s)/Referral(s): Calos Flores DO [Primary Care Provider] - 08/17/23 11:40 am Daniel Nayak MD [STAFF PHYSICIAN] - 08/16/23 12:00 pm Patient Instructions/Handouts: Abdominal Pain (ED) Activity/Diet/Wound Care/Special Instructions: Continue using incentive spirometer every hour 10 while awake. No lifting over 10 pounds Shower daily. No soaking or tub baths for 2 weeks Very light activity until you are reevaluated at your follow up appointment with your surgeon Discharge Disposition: HOME SELF-CARE
--- NOTE | 2023-08-02 14:37 | P.PN ---
Subjective Progress Note Date: 08/02/23 This is 62-year-old female status post lap cholecystectomy, postop day #1. Pain controlled. T-max 100.5. WBC elevated yesterday, 14. Currently maintaining O2 sats of-90s on 4 L nasal cannula which can be titrated further down. Tolerating regular diet with no nausea vomiting or diarrhea. Passing flatus. No bowel movement. Eyes chest pain, palpitations or shortness of breath. 08/02/2023 significant clinical improvement. Afebrile, WBC within normal limits. Ambulating, tolerating exertion well. Pain controlled. Maintaining O2 sats in the 90s on room air. Tolerating diet with no nausea or vomiting. No bowel movement, passing flatus. Denies chest pain, palpitations or shortness of breath. Objective - Vital Signs Vital signs: Vital Signs Temp 98.1 F 08/02/23 07:18 Pulse 63 08/02/23 07:18 Resp 18 08/02/23 09:46 BP 123/83 08/02/23 07:18 Pulse Ox 97 08/02/23 07:18 FiO2 Intake & Output 08/01/23 08/02/23 08/02/23 18:59 06:59 18:59 Intake Total 1092 300 Balance 1092 300 Intake: Oral 1092 300 Other: Voiding Method Toilet # Voids 3 2 - Exam General appearance: alert and oriented 3, NAD HEENT: atraumatic, normocephalic, pupils equal, reactive, normocephalic,MMM. Neck: Supple, no JVD Respiratory: Unlabored, equal air entry, bilateral bases diminished Cardiovascular Exam: Present: regular rate, normal rhythm, normal heart sounds. GI/Abdominal exam: Present: soft, status post surgery Extremities exam: Present: normal inspection, normal capillary refill. Absent: pedal edema, calf tenderness Neurological: Cranial nerves II through XII grossly intact Skin exam: Present: warm, dry, intact, normal color. Absent: rash - Labs CBC & Chem 7: 08/02/23 07:20 07/31/23 07:07 Labs: Abnormal Lab Results - Last 24 Hours (Table) 08/02/23 Range/Units 07:20 MCH 26.3 L (27.0-32.0) pg MCHC 31.6 L (32.0-37.0) g/dL RDW 15.0 H (11.5-14.5) % MPV 9.4 L (9.5-12.2) FL Assessment and Plan Assessment: Cholecystitis and cholelithiasis status post laparoscopic cholecystectomy Atelectasis, postoperative, expected outcome Hypoxic respiratory failure secondary to the above, resolved Leukocytosis, suspect reactive, resolved Gastroesophageal reflux disease Hypertension, controlled. Plan: Continue on current medication regime ,monitoring and symptomatic treatment. Discharging planned for today as per general surgery. Pain management as per primary. Maintain aggressive pulmonary toileting with incentive spirometer reinforced. Follow-up with PCP in one week. The impression and plan of care has been dictated as directed. : I performed a history and examination of this patient, discussed the same with the dictator. I agree with the dictator's note ,documented as a scribe. Any additional findings or plans will be noted.
== END 2023-08-02 13:34 | disposition home or self-care (01) ==
LOC: EC 23:05 → INTOOBSV 07-30 07:38 → 4SSUR 07-30 07:38
PROVIDERS: ADMIT Surgery; ATTEND Surgery
DX: K80.12 Calculus of gallbladder with acute and chronic cholecystitis without obstruction (principal); J95.89 Other postprocedural complications and disorders of respiratory system, not elsewhere classified; J98.11 Atelectasis; J96.91 Respiratory failure, unspecified with hypoxia; K76.0 Fatty (change of) liver, not elsewhere classified; I10 Essential (primary) hypertension; K21.9 Gastro-esophageal reflux disease without esophagitis; Z79.899 Other long term (current) drug therapy; Z88.0 Allergy status to penicillin; Z88.1 Allergy status to other antibiotic agents; Z88.6 Allergy status to analgesic agent; Z90.710 Acquired absence of both cervix and uterus; Z98.890 Other specified postprocedural states
CPT/HCPCS: 96376 ×3; 96372 ×2; 96375 ×2; 96374; 99285; 36415; 94760; 88304; 80053; 80048; 82150; 83690; 85025 ×3; 81001; 76705; 74176; 47562; G0378 ×2; J2250; J0330; J2270; J0360; J1200; J2765; J2405 ×2; J0690; J2001; J1650 ×2; J3010; J2704; C9113 ×4; J1170 ×2; J0665

== ENCOUNTER 2023-08-02 21:22 | Emergency (ER) | payer OTHER ==
--- NOTE | 2023-08-02 21:56 | ED ---
General Adult HPI <Stephen To - Last Filed: 08/02/23 21:57> <Kathryn Marks - Last Filed: 08/04/23 00:02> - General Stated complaint: Post-op Chest Pain, Pain in Neck, shoulder, arm Time Seen by Provider: 08/02/23 21:55 - History of Present Illness Initial comments: 62-year-old female presenting to the ED with a chief complaint of left shoulder pain. His sister said experiencing this at around 5 PM today. No injury or trauma. She notes she recently had a laparoscopic cholecystectomy performed by Dr. Haskins on 08/02/23 (Stephen To) 62-year-old female presenting with chief complaint of left shoulder pain. Patient was discharged from our facility today after a cholecystectomy performed on 08/02. She reports that when she laid down onto her right side she started experiencing some left shoulder pain. She states that this pain does somewhat radiate interpreted headache. No radiation into the chest and no chest pain. No difficulty breathing. No jaw pain. No palpitations, nausea, vomiting, abdominal pain, fever, chills, numbness, tingling, weakness, injury. No unilateral leg swelling. No alleviating or aggravating factors. (Kathryn Marks) - Related Data Home Medications Medication Instructions Recorded Confirmed Omeprazole 20 mg PO DAILY@0300 07/30/23 07/30/23 amLODIPine [Norvasc] 5 mg PO DAILY@0300 07/30/23 07/30/23 Previous Rx's Medication Instructions Recorded Acetaminophen Tab [Tylenol] 1,000 mg PO Q6HR PRN #30 tablet 08/02/23 Allergies Allergy/AdvReac Type Severity Reaction Status Date / Time aspirin Allergy Ringing in Verified 08/02/23 21:57 ears, dizziness cephalexin [From Keflex] Allergy Blisters, Verified 08/02/23 21:57 rash, hives. Penicillins Allergy Unknown Verified 08/02/23 21:57 Review of Systems ROS Other: All systems not noted in ROS Statement are negative. <Stephen To - Last Filed: 08/02/23 21:57> ROS Other: All systems not noted in ROS Statement are negative. <Kathryn Marks - Last Filed: 08/04/23 00:02> ROS Statement: Those systems with pertinent positive or pertinent negative responses have been documented in the HPI. Past Medical History Past Medical History: No Reported History History of Any Multi-Drug Resistant Organisms: None Reported Past Surgical History: Hysterectomy Additional Past Surgical History / Comment(s): sinus surgery Past Psychological History: No Psychological Hx Reported Smoking Status: Never smoker, Smoker, current status unknown Past Alcohol Use History: None Reported Past Drug Use History: None Reported <ZuleikaStephen - Last Filed: 08/02/23 21:57> General Exam <Stephen To - Last Filed: 08/02/23 21:57> Limitations: no limitations General appearance: alert, in no apparent distress Head exam: Present: atraumatic, normocephalic, normal inspection Eye exam: Present: normal appearance, EOMI Neck exam: Present: normal inspection, full ROM Respiratory exam: Present: normal lung sounds bilaterally. Absent: respiratory distress, wheezes, rales, rhonchi, stridor Cardiovascular Exam: Present: regular rate, normal rhythm, normal heart sounds. Absent: systolic murmur, diastolic murmur, rubs, gallop, clicks GI/Abdominal exam: Present: soft. Absent: distended, tenderness, guarding, rebound, rigid Extremities exam: Present: normal inspection, full ROM, normal capillary refill. Absent: tenderness Neurological exam: Present: oriented X3 Psychiatric exam: Present: normal affect, normal mood Skin exam: Present: warm, dry <Kathryn Marks - Last Filed: 08/04/23 00:02> - General Exam Comments Initial Comments: Visual Physical Exam Vital signs reviewed General: Well-appearing, nontoxic, no acute distress. Head: Normocephalic, atraumatic Eyes: PERRLA, EOMI ENT: Airway patent Chest: Nonlabored breathing Skin: No visual rash, normal skin tone Neuro: Alert and oriented 3 Musculoskeletal: No gross abnormalities (Stephen To) Course Vital Signs 08/02/23 08/02/23 08/03/23 21:51 23:18 00:52 Temperature 97.6 F 98.7 F Pulse Rate 96 92 79 Respiratory 22 20 18 Rate Blood Pressure 156/91 150/84 135/80 O2 Sat by Pulse 97 98 98 Oximetry EKG Findings - EKG Comments: EKG Findings:: Sinus rhythm ventricular rate 89. MT interval 198. QRS 90. QT 352. QTc 399. Normal axis. <Kathryn Marks - Last Filed: 08/04/23 00:02> Medical Decision Making <Stephen To - Last Filed: 08/02/23 21:57> - Lab Data Result diagrams: 08/02/23 23:16 08/02/23 23:16 <aKthryn Marks - Last Filed: 08/04/23 00:02> - Medical Decision Making Quicknote portion performed. Signed Stephen To PA-C (Stephen To) Was pt. sent in by a medical professional or institution (, PA, JUNIOR PROGRAMMER ANALYST, urgent care, hospital, or [place] [facility] care facility...) When possible be specific @ -No Did you speak to anyone other than the patient for history (EMS, parent, family, police, friend...)? What history was obtained from this source @ -No Did you review nursing and triage notes (agree or disagree)? Why? @ -I reviewed notes from the patient's recent admission for cholecystectomy Were old charts reviewed (outside hosp., previous admission, EMS record, old EKG, old radiological studies, urgent care reports/EKG's, [place] [facility] facility records)? Report findings @ -No old charts were reviewed Differential Diagnosis (chest pain, altered mental status, abdominal pain women, abdominal pain men, vaginal bleeding, weakness, fever, dyspnea, syncope, headache, dizziness, GI bleed, back pain, seizure, CVA, palpatations, mental h ealth, musculoskeletal)? @ -Differential Musculoskeletal Muscular strain, contusion, ligament sprain, fracture, arthritis, septic arthritis, bursitis, cellulitis, muscle spasm, nerve compression, DVT, arterial occlusion, herpes zoster, electrolyte abnormality, tumor.... This is not meant to be in all inclusive list EKG interpreted by me (3pts min.). @ -Sinus rhythm ventricular rate 89. MT interval 190. QRS 90. QT 352. QTC 399. Normal axis. No ischemic changes. X-rays interpreted by me (1pt min.). @ -Platelike atelectasis or scarring in the lower lobes. No focal consolidation or acute cardiopulmonary process identified. CT interpreted by me (1pt min.). @ -None done U/S interpreted by me (1pt. min.). @ -None done What testing was considered but not performed or refused? (CT, X-rays, U/S, labs)? Why? @ -None What meds were considered but not given or refused? Why? @ -None Did you discuss the management of the patient with other professionals (professionals i.e. , PA, JUNIOR PROGRAMMER ANALYST, lab, RT, psych nurse, social sciences professor, laser engineer, teacher, evp chief exploration officer, rifle case repairer)? Give summary @ -No Was smoking cessation discussed for >3mins.? @ -No Was critical care preformed (if so, how long)? @ -No Were there social determinants of health that impacted care today? How? (Homelessness, low income, unemployed, alcoholism, drug addiction, transportation, low edu. Level, literacy, decrease access to med. care, intermediate, r ehab)? @ -No Was there de-escalation of care discussed even if they declined (Discuss DNR or withdrawal of care, Hospice)? DNR status @ -No What co-morbidities impacted this encounter? (DM, HTN, Smoking, COPD, CAD, Cancer, CVA, ARF, Chemo, Hep., AIDS, mental health diagnosis, sleep apnea, morbid obesity)? @ -None Was patient admitted / discharged? Hospital course, mention meds given and route, prescriptions, significant lab abnormalities, going to OR and other pertinent info. @ -62-year-old female presenting with chief complaint of left shoulder pain that started this evening. No injury or trauma. No chest pain or difficulty breathing. Patient was discharged earlier today after cholecystectomy on 08/02. On physical examination she is neurovascularly intact, she has full range of motion of the shoulder. No evidence of radiculopathy. No tenderness or guarding on abdominal exam. Heart and lungs are clear to auscultation. Lab work shows no leukocytosis or anemia. Mild transaminitis likely due to recent cholecystectomy. Negative troponin. EKG shows no ischemic changes. Patient was treated with Dilaudid for pain, on reassessment she reports improvement in her symptoms. She is continuing to have no abdominal pain, chest pain, vomiting. She is afebrile. Patient will be discharge and is instructed to follow-up with her PCP and surgeon. Educated on alarms symptoms that should prompt reevaluation. Follow-up with PCP. Report back to ER with any new or worsening symptoms. Discussed return parameters and answered all questions. Patient conveyed verbal understanding and agreed to the plan. I discussed this case in detail with my attending Dr. Rincon Undiagnosed new problem with uncertain prognosis? @ -No Drug Therapy requiring intensive monitoring for toxicity (Heparin, Nitro, Insulin, Cardizem)? @ -No Were any procedures done? @ -No Diagnosis/symptom? @ -Gas pain Acute, or Chronic, or Acute on Chronic? @ -Acute Uncomplicated (without systemic symptoms) or Complicated (systemic symptoms)? @ -Uncomplicated Side effects of treatment? @ -No Exacerbation, Progression, or Severe Exacerbation? @ -No Poses a threat to life or bodily function? How? (Chest pain, USA, SD, pneumonia, PE, COPD, DKA, ARF, appy, cholecystitis, CVA, Diverticulitis, Homicidal, Suicidal, threat to staff... and all critical care pts) @ -Low likelihood (Kathryn Marks) - Lab Data Lab Results 08/02/23 08/02/23 08/02/23 Range/Units 23:16 23:16 23:16 WBC 10.5 (3.8-10.6) k/uL RBC 4.91 (3.80-5.40) m/uL Hgb 13.2 (11.4-16.0) gm/dL Hct 40.3 (34.0-46.0) % MCV 82.2 (80.0-100.0) fL MCH 26.9 (25.0-35.0) pg MCHC 32.7 (31.0-37.0) g/dL RDW 14.3 (11.5-15.5) % Plt Count 363 (150-450) k/uL MPV 7.0 Neutrophils % 73 % Lymphocytes % 17 % Monocytes % 6 % Eosinophils % 3 % Basophils % 1 % Neutrophils # 7.6 (1.3-7.7) k/uL Lymphocytes # 1.8 (1.0-4.8) k/uL Monocytes # 0.6 (0-1.0) k/uL Eosinophils # 0.3 (0-0.7) k/uL Basophils # 0.1 (0-0.2) k/uL PT 9.6 L (10.0-12.5) sec INR 0.8 (<1.2) APTT 23.5 (22.0-30.0) sec Sodium 137 (137-145) mmol/L Potassium 4.5 (3.5-5.1) mmol/L Chloride 102 (98-107) mmol/L Carbon Dioxide 25 (22-30) mmol/L Anion Gap 10 mmol/L BUN 15 (7-17) mg/dL Creatinine 0.58 (0.52-1.04) mg/dL Est GFR (CKD-EPI)AfAm >90 (>60 ml/min/1.73 sqM) Est GFR (CKD-EPI)NonAf >90 (>60 ml/min/1.73 sqM) Glucose 154 H (74-99) mg/dL Calcium 9.2 (8.4-10.2) mg/dL Magnesium 2.0 (1.6-2.3) mg/dL Total Bilirubin 0.9 (0.2-1.3) mg/dL AST 49 H (14-36) U/L ALT 39 H (4-34) U/L Alkaline Phosphatase 114 (38-126) U/L Troponin I (0.000-0.034) ng/mL Total Protein 7.1 (6.3-8.2) g/dL Albumin 4.0 (3.5-5.0) g/dL 08/02/23 Range/Units 23:16 WBC (3.8-10.6) k/uL RBC (3.80-5.40) m/uL Hgb (11.4-16.0) gm/dL Hct (34.0-46.0) % MCV (80.0-100.0) fL MCH (25.0-35.0) pg MCHC (31.0-37.0) g/dL RDW (11.5-15.5) % Plt Count (150-450) k/uL MPV Neutrophils % % Lymphocytes % % Monocytes % % Eosinophils % % Basophils % % Neutrophils # (1.3-7.7) k/uL Lymphocytes # (1.0-4.8) k/uL Monocytes # (0-1.0) k/uL Eosinophils # (0-0.7) k/uL Basophils # (0-0.2) k/uL PT (10.0-12.5) sec INR (<1.2) APTT (22.0-30.0) sec Sodium (137-145) mmol/L Potassium (3.5-5.1) mmol/L Chloride (98-107) mmol/L Carbon Dioxide (22-30) mmol/L Anion Gap mmol/L BUN (7-17) mg/dL Creatinine (0.52-1.04) mg/dL Est GFR (CKD-EPI)AfAm (>60 ml/min/1.73 sqM) Est GFR (CKD-EPI)NonAf (>60 ml/min/1.73 sqM) Glucose (74-99) mg/dL Calcium (8.4-10.2) mg/dL Magnesium (1.6-2.3) mg/dL Total Bilirubin (0.2-1.3) mg/dL AST (14-36) U/L ALT (4-34) U/L Alkaline Phosphatase (38-126) U/L Troponin I <0.012 (0.000-0.034) ng/mL Total Protein (6.3-8.2) g/dL Albumin (3.5-5.0) g/dL Disposition <Stephen To - Last Filed: 08/02/23 21:57> Is patient prescribed a controlled substance at d/c from ED?: No Time of Disposition: 00:49 <Kathryn Marks - Last Filed: 08/04/23 00:02> Clinical Impression: Gas pain Disposition: HOME SELF-CARE Condition: Good Instructions (If sedation given, give patient instructions): Gas and Bloating (ED), Laparoscopic Cholecystectomy (DC) Additional Instructions: Follow-up with your surgeon and PCP. Report back to ER with any new or w orsening symptoms. Referrals: Calos Flores DO [Primary Care Provider] - 1-2 days
[2023-08-02 23:21] LABS: Basophils # (A) 0.1 k/uL (0-0.2); Basophils % (A) 1 %; Eosinophils # (A) 0.3 k/uL (0-0.7); Eosinophils % (A) 3 %; HCT 40.3 % (34.0-46.0); HGB 13.2 gm/dL (11.4-16.0); Lymphocytes # (A) 1.8 k/uL (1.0-4.8); Lymphocytes % (A) 17 %; MCH 26.9 pg (25.0-35.0); MCHC 32.7 g/dL (31.0-37.0); MCV 82.2 fL (80.0-100.0); Monocytes # (A) 0.6 k/uL (0-1.0); Monocytes % (A) 6 %; Neutrophils # (A) 7.6 k/uL (1.3-7.7); Neutrophils % (A) 73 %; Platelet Count 363 k/uL (150-450); RBC 4.91 m/uL (3.80-5.40); RDW 14.3 % (11.5-15.5); WBC 10.5 k/uL (3.8-10.6)
--- NOTE | 2023-08-02 23:32 | XR ---
EXAM: XR Chest, 2 Views CLINICAL HISTORY: ITS.REASON XR Reason: Chest Pain TECHNIQUE: Frontal and lateral views of the chest. COMPARISON: Portable chest single view 12/19/2020 FINDINGS: Lungs: A horizontal linear platelike subsegmental changes noted in the lower lobes bilaterally, left greater than right. The lungs are otherwise clear. The pulmonary vasculature demonstrates no significant radiographic abnormality. Pleural space: Unremarkable. No pneumothorax. No large pleural effusion. Heart: The cardiac silhouette is less prominent in appearance given portable technique and appears within normal limits. Mediastinum: Unremarkable. No significant abnormality identified. The trachea is midline. Bones/joints: Unremarkable. No acute fracture. IMPRESSION: Platelike atelectasis or scarring in the lower lobes. No focal consolidation or acute cardiopulmonary process identified.
[2023-08-02 23:33] LABS: INR 0.8 (<1.2); Partial Thromboplastin Time 23.5 sec (22.0-30.0); Prothrombin Time 9.6 sec (10.0-12.5)
[2023-08-02] MEDS ORDERED: HYDROmorphone 1 MG/ML 1 ML SYRINGE IVP STA (23:36)
[2023-08-02 23:42] VITALS: TEMP 98.7
[2023-08-02 23:44] LABS: ALT 39 U/L (4-34); African American GFR (CKD) >90 (>60 ml/min/1.73 sqM); Anion Gap 10 mmol/L; Blood Urea Nitrogen 15 mg/dL (7-17); Calcium 9.2 mg/dL (8.4-10.2); Carbon Dioxide 25 mmol/L (22-30); Chloride 102 mmol/L (98-107); Glucose 154 mg/dL (74-99); Non-African American GFR(CKD) >90 (>60 ml/min/1.73 sqM); Sodium 137 mmol/L (137-145); Total Bilirubin 0.9 mg/dL (0.2-1.3)
[2023-08-02 23:47] LABS: Potassium 4.5 mmol/L (3.5-5.1)
[2023-08-02 23:48] LABS: AST 49 U/L (14-36); Alkaline Phosphatase 114 U/L (38-126); Total Protein 7.1 g/dL (6.3-8.2)
[2023-08-03 01:15] VITALS: BP 135/80; PULSE 79; RESP 18
== END 2023-08-03 01:01 | disposition home or self-care (01) ==
LOC: EC 21:22
DX: R14.1 Gas pain (principal); I25.2 Old myocardial infarction; Z88.0 Allergy status to penicillin; Z88.1 Allergy status to other antibiotic agents; Z88.6 Allergy status to analgesic agent
CPT/HCPCS: 36415; 93005; 80053; 83735; 84484; 85025; 85610; 85730; 71046; 99285; 96374; J1170